=== PATIENT | male | born 1995 | race Caucasian/White ===

== ENCOUNTER 2017-11-11 18:13 | Emergency (ER) | payer OTHER, SELFPAY ==
[2017-11-11 18:16] VITALS: BP 159/99; PULSE 120; RESP 16; TEMP 36.2; O2SAT 98; BMI 18.8
[2017-11-11 19:00] LABS: Absolute Lymphocyte Count 1.69 X10^3/ul (0.83-4.51); Absolute Neutrophil Count 8.6 X10^3/uL (2.0-7.7); Basophil# 0.02 X10^3/uL; Basophil% 0.2 % (0-1); Eosinophil# 0.08 X10^3/uL; Eosinophils% 0.7 % (0-5); Hematocrit 41.7 % (40-54); Hemoglobin 14.5 g/dl (13.0-16.5); Lymphocyte # 1.69 X10^3/ul (4.0); Lymphocyte % 14.7 % (19-41); Mean Corp Hgb Conc 34.8 g/gl (32-36); Mean Corpuscular Hgb 30.5 pg (27.0-32.0); Mean Corpuscular Volume 87.8 fL (80-94); Mean Platelet Vol. 11.1 fl (6.2-12.0); Monocyte# 1.12 X10^3/uL; Monocyte% 9.8 % (0-10); Neutrophil # 8.56 X10^3/uL (2.7-7.7); Neutrophil % 74.5 % (47-70); Platelet Count 260 K/mm3 (150-450); RBC Distribution Width CV 12.1 % (11.6-14.6); RBC Distribution Width SD 38.6 fl (35.1-43.9); Red Blood Count 4.75 M/mm3 (4.6-6.2); White Blood Count 11.5 K/mm3 (4.4-11.0)
[2017-11-11 19:04] LABS: POSITIVE COUNT NO; POSITIVE DIFFERENTIAL NO; POSITIVE MORPHOLOGY NO
[2017-11-11 19:19] LABS: AST(SGOT) 44 U/L (15-37); Alanine Aminotransfer ALT/SGPT 46 U/L (16-61); Alkaline Phosphatase 80 U/L (45-117); Anion Gap 9 (5-15); BUN 13 mg/dL (7-18); BUN/Creat Ratio 11.8 RATIO (10-20); Chloride 105 mmol/L (98-107); EST Glomerular Filtration Rate 89 mL/min (>60); Est Glom Filt Rate - Afr Amer 108 mL/min (>60); Estimated Creatinine Clearance 93.94 ml/min; Globulin 4.1 g/dL (2.2-4.2); Glucose 87 mg/dL (74-106); Lipase 230 U/L (73-393); Potassium 3.5 mmol/L (3.5-5.1); Protein, Total 8.1 g/dL (6.4-8.2); Sodium Level 141 mmol/L (136-145)
--- NOTE | 2017-11-11 19:36 | ED.VISSUMM ---
- ER Visit Summary Date of Service: 11/11/17 Chief Complaint: Throwing up blood History of Present Illness: The patient is a 22 M who has had 2 months of hematemesis per the patient. He states that every day he wakes up and he vomits dark blood. He also had some epigastric and left upper quadrant abdominal pain. He states that he feels weak. Denies any fevers. No history of any abdominal surgeries in the past. Physical Examination: Vital signs reviewed. HEENT exam unremarkable. Heart is regular rate and rhythm without murmurs. Lungs are clear to auscultation. Abdomen is soft tenderness in the epigastric region. Extremities reveal no edema. Skin exam normal. Neurologic exam normal. Test Results: Laboratory studies show a white blood cell count of 11.5, hemoglobin 14.5, total bilirubin 1.1, AST 44 Emergency Department Course and Treatment: Patient was given IV Protonix here. Treatment Plan: The patient may have ulcers causing the bleeding. He is not acutely hemorrhaging at this time. I do not feel he requires admission. Patient will be discharged with omeprazole and Carafate. He will need follow-up with his PCP for further testing Disposition: Discharge Impression: Epigastric abdominal pain This note was generated with [employer] dictation software. It may contain incorrect words, spelling, and punctuation that were not noted in review of the chart prior to signing ED Disposition - Plan for ED Patient: Chief Complaint: GI Bleed Referrals: Chinmay Chaney DO [Primary Care Provider] -
--- NOTE | 2017-11-11 19:37 | ED.DEP ---
ED Disposition - Plan for ED Patient: Disposition: Home or Assisted Living Chief Complaint: GI Bleed Instructions: ED Bleed UGI Stable Prescriptions: Omeprazole [Prilosec] 20 mg PO DAILY #30 cap Sucralfate [Carafate] 1 gm PO 4X/DAY #60 tab Referrals: Chinmay Chaney DO [Primary Care Provider] -
[2017-11-11 20:02] VITALS: BP 125/85; PULSE 70; RESP 16; O2SAT 99
== END 2017-11-11 20:04 | disposition home or self-care (01) ==
PROVIDERS: Emergency Provider Emergency Medicine; Family Provider Preventive Medicine Occupational Medicine; PCP Preventive Medicine Occupational Medicine
DX: R10.13 Epigastric pain (principal); R10.12 Left upper quadrant pain; R53.1 Weakness; R11.2 Nausea with vomiting, unspecified; G40.909 Epilepsy, unspecified, not intractable, without status epilepticus; Z79.899 Other long term (current) drug therapy; Z72.0 Tobacco use
CPT/HCPCS: 80053; 83690; 85025; 96365; 99284; A4216

== ENCOUNTER 2018-10-13 17:19 | Emergency (ER) | payer OTHER, SELFPAY ==
[2018-10-13 17:19] VITALS: BP 155/111; PULSE 132; RESP 18; TEMP 37.1; O2SAT 99; BMI 19.9
--- NOTE | 2018-10-13 17:36 | ED.VISSUMM ---
- ER Visit Summary Date of Service: 10/13/18 Chief Complaint: I do not feel right History of Present Illness: The patient is a 23 M he was about to give urine for a drug test at work he suddenly stopped feeling right. He has no fever or chills he has a slight headache he missed a dose of Keppra 2 days ago. He has no abdominal pain nausea or vomiting, it is difficult to get an accurate description of his symptoms. 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 He denies head injury or vision changes. Physical Examination: [] Not appear in acute distress. Slightly tachycardic Moist mucous membranes, no obvious facial deformity No C-spine tenderness supple neck. Regular rhythm tachycardic without any obvious murmurs Clear lungs bilaterally speaking in full sentences without any obvious respiratory distress Abdomen soft and nontender no guarding or rebound Moves all extremities without any difficulty or pain. Skin does not show any obvious rashes or lesions, no trauma. Alert oriented ?3 with no gross focal deficit Emergency Department Course and Treatment: My plan was to draw blood work, because he had a headache I was going to a CT, however the patient now just wants to go home he gave it a urine sample for drug screen however does not wish any more treatment. He is lucid coherent and can make up his own mind, I try to talk him into getting some workup he again objects and does not want any further treatment. Patient signed out AGAINST MEDICAL ADVICE. Disposition: AGAINST MEDICAL ADVICE Impression: Headache This note was generated with [employer] dictation software. It may contain incorrect words, spelling, and punctuation that were not noted in review of the chart prior to signing ED Disposition - Plan for ED Patient: Disposition: Home or Assisted Living Instructions: ED Refusal Of Further Treatment Referrals: Chinmay Chaney DO [Primary Care Provider] -
--- NOTE | 2018-10-13 17:45 | ED.RN ---
PT CALLED RN INTO THE ROOM AND STATED HE DID NOT WANT TO BE TREATED BY A DOCTOR ANYMORE. DR. HECTOR NOTIFIED.
== END 2018-10-13 18:00 | disposition left against medical advice (07) ==
PROVIDERS: Emergency Provider Emergency Medicine; Family Provider Preventive Medicine Occupational Medicine; PCP Preventive Medicine Occupational Medicine
DX: R51 Headache (principal); Z53.21 Procedure and treatment not carried out due to patient leaving prior to being seen by health care provider; G40.909 Epilepsy, unspecified, not intractable, without status epilepticus; Z79.899 Other long term (current) drug therapy; Z72.0 Tobacco use
CPT/HCPCS: 99282